=== PATIENT | female | born 1970 | race Caucasian/White ===

== ENCOUNTER 2018-02-23 05:48 | Inpatient (IN) | payer OTHER, BC ==
[2018-02-23] MEDS: LACTATED RINGER'S 1,000 ML IV* ×2 (06:39→10:40)
[2018-02-23] MEDS ORDERED: PROPOFOL 20 ML ×2 (06:46→07:30)
[2018-02-23] MEDS ORDERED: ONDANSETRON 4 MG INJ (06:47)
[2018-02-23] MEDS ORDERED: METOCLOPRAMIDE 10 MG INJ (06:47)
[2018-02-23] MEDS ORDERED: MIDAZOLAM 1 MG/ML 2 ML INJ (06:47)
[2018-02-23] MEDS ORDERED: ROCURONIUM 50 MG INJ (07:00)
[2018-02-23] MEDS ORDERED: ACETAMINOPHEN 1000 MG/100 ML IVPB (07:00)
[2018-02-23] MEDS ORDERED: DIPHENHYDRAMINE 50 MG INJ IV (07:00)
[2018-02-23] MEDS ORDERED: MEPERIDINE 25 MG INJ IV (07:00)
[2018-02-23] MEDS ORDERED: CEFAZOLIN 1 GM INJ (07:00)
[2018-02-23] MEDS ORDERED: ONDANSETRON 4 MG INJ IV ×2 (07:00→09:00)
[2018-02-23] MEDS ORDERED: HYDROmorphONE (0.2 MG/ML) 10ML SYG IV ×3 (07:00)
[2018-02-23] MEDS ORDERED: HYDROmorphONE 2 MG/ML SYG (07:13)
[2018-02-23] MEDS ORDERED: EPHEDrine SULFATE 50 MG/5 ML SYG (07:17)
[2018-02-23] MEDS ORDERED: SUCCINYLCHOLINE CHLORIDE 100 MG/5 ML SYG IV (07:17)
[2018-02-23] MEDS: BUPIVACAINE 0.25% (MPF) 30 ML INJ (07:57)
[2018-02-23] MEDS: GELATIN SIZE 100 SPONGE (07:58)
[2018-02-23] MEDS: POLYMYXIN/BACITRACIN 1L IRRIG (07:58)
[2018-02-23] MEDS: THROMBIN 5000 UNIT VIAL (07:59)
[2018-02-23] MEDS ORDERED: NEOSTIGMINE 3 MG/3 ML SYRINGE (08:13)
[2018-02-23] MEDS ORDERED: GLYCOPYRROLATE 0.4 MG INJ (08:13)
[2018-02-23] MEDS ORDERED: AL HYDROX/MG HYDROX/SIMETH 30 ML CUP PO (09:00)
[2018-02-23] MEDS ORDERED: ACETAMINOPHEN 325 MG TAB PO (09:00)
[2018-02-23] MEDS ORDERED: ZOLPIDEM 5 MG TAB PO (09:00)
[2018-02-23] MEDS ORDERED: TRIMETHOBENZAMIDE 100 MG/ML VIAL IM (09:00)
[2018-02-23] MEDS ORDERED: NACL 0.9% 3 ML SYG IV (09:00)
[2018-02-23] MEDS ORDERED: DIAZEPAM 5 MG/ML SYG IM (09:00)
[2018-02-23] MEDS ORDERED: DIAZEPAM 5 MG TAB PO (09:00)
[2018-02-23] MEDS ORDERED: DIPHENHYDRAMINE 50 MG CAP PO (09:00)
[2018-02-23] MEDS ORDERED: HYDROCODONE/APAP (5/325) TAB PO ×2 (09:00)
[2018-02-23] MEDS ORDERED: PROCHLORPERAZINE 10 MG TAB PO (09:00)
[2018-02-23] MEDS ORDERED: NALOXONE (0.4 MG/ML) INJ IV (09:00)
[2018-02-23] MEDS ORDERED: BETHANECHOL 25 MG TAB PO (09:00)
[2018-02-23] MEDS: HYDROmorphONE 0.2 MG/ML PCA IV (09:44)
[2018-02-23] MEDS: CEFAZOLIN 2 GM/50 ML (PMX) 50 ML IVPB (10:40)
[2018-02-23] MEDS: DEXTROSE 5%-0.45% NACL 1,000 ML IV ×3 (10:42→21:15)
[2018-02-23] MEDS: CEFAZOLIN 1 GM/50 ML (PMX) 50 ML IVPB ×2 (11:19→18:46)
[2018-02-23] MEDS: CEPASTAT LOZENGE MT ×2 (11:19→21:14)
[2018-02-23] MEDS: RANITIDINE 150 MG TAB PO ×2 (21:00→21:01)
[2018-02-24] MEDS: CEFAZOLIN 1 GM/50 ML (PMX) 50 ML IVPB ×2 (01:07→05:33)
[2018-02-24 06:01] LABS: HEMATOCRIT 31.8 % (37.0-47.0); HEMOGLOBIN 10.5 g/dl (12.0-16.0)
[2018-02-24 06:43] LABS: ANION GAP 13 (8-16); BLOOD UREA NITROGEN 4 mg/dl (7-20); CARBON DIOXIDE 25 mmol/L (21-31); CHLORIDE 108 mmol/L (97-110); CREATININE 0.63 mg/dl (0.44-1.00); GLUCOSE 105 mg/dl (70-220); POTASSIUM 3.9 mmol/L (3.5-5.1); SODIUM 142 mmol/L (135-144)
[2018-02-24] MEDS ORDERED: BETHANECHOL 25 MG TAB PO (08:00)
[2018-02-24] MEDS: ASCORBIC ACID 500 MG TAB PO (08:36)
[2018-02-24] MEDS: DOCUSATE SODIUM 100 MG CAP PO (08:36)
[2018-02-24] MEDS: RANITIDINE 150 MG TAB PO (08:36)
[2018-02-24] MEDS: FERROUS SULFATE (EC) 325 MG TAB PO ×2 (08:36→12:40)
[2018-02-24] MEDS: DEXTROSE 5%-0.45% NACL 1,000 ML IV (14:36)
== END 2018-02-24 16:15 | disposition home or self-care (01) | DRG 520 ==
LOC: REC 05:48 → MS1 10:12
PROC: 0SB40ZZ Excision of Lumbosacral Disc, Open Approach (ICD-10-PCS; principal; 2018-02-23 06:59)
PROC: 4A11X4G Monitoring of Peripheral Nervous Electrical Activity, Intraoperative, External Approach (ICD-10-PCS; 2018-02-23 06:59)
DX: M51.27 Other intervertebral disc displacement, lumbosacral region (principal); M48.07 Spinal stenosis, lumbosacral region; M21.372 Foot drop, left foot; R20.0 Anesthesia of skin
CPT/HCPCS: 72020; 80048; 85014; 85018; 86850; 86900; 86901; 86920; 97116; 97161